=== PATIENT | female | born 1940 | race Caucasian/White ===

== ENCOUNTER → 2018-03-23 | Outpatient (CLI) | payer MEDICARE, OTHER ==
--- NOTE | 2018-03-25 09:52 | SLEEP ---
DATE OF STUDY: 03/23/2018 OBJECTIVE: The patient is a 77-year-old female who had a home sleep study on 02/16/2018 showing desaturations at the rate of 16 events per hour. The patient was on 3 liters of oxygen at that time. INTERPRETATION: Sleep architecture is characterized by sleep efficiency of 84% across the 7.7 hours of recording time. There is absence of REM sleep. Sleep onset latency is 5 minutes. There are a total of 117 events for an apnea-hypopnea index of 18.0 events per hour of sleep. The minimum oxygen saturation is 43%. The vast majority of the events are obstructive. The patient was started on treatment. At a BiPAP setting of 12/8, the apnea/hypopnea index remains 29.3 events per hour of sleep. No significant cardiac arrhythmias are observed. Periodic limb movements of sleep occur at the rate of 51 events per hour, 8 per hour associated with arousal. IMPRESSION: Abnormal polysomnogram showing partially treated sleep apnea on a setting of 12/8. RECOMMENDATIONS: Unfortunately, we were unable to fully treat the patient's apnea on the setting of 12/8. Recommend repeat study, possibly starting the patient on 15/8 BiPAP with 3 liters of oxygen in the meantime. Of course, the patient should also pursue weight loss and avoid sedatives and alcohol. Thank you for letting us help with the patient's care. HONG SALOMON MD DR: KADEN/elena JOB#: [id number] / [id number] NELLA Sandy MD, GEORGE MD
== END | disposition home or self-care (01) ==
LOC: SLPLAB 18:25 → MERGE 18:30
PROVIDERS: ATTEND Internal Medicine Pulmonary Disease
DX: G47.30 Sleep apnea, unspecified (principal)
CPT/HCPCS: 95810

== ENCOUNTER → 2018-10-05 | Outpatient (CLI) | payer MEDICARE, OTHER ==
[2018-04-11 11:30] VITALS: BP 165/81
[~2018-10-05] MED LIST: ALBU2.5V8 INH; ALLO300T PO; DOXY100T PO; IBUP-1007 PO; LEVO125T PO; LIPITOR80 MG PO; METF500T9 PO; METO-239 PO; MOME13HF IH; OMEP20TA63 PO; PRED-220 PO; SERT100T PO; TELM40TA PO; TOLT4CAP PO
--- NOTE | 2018-10-05 14:06 | KCIC ---
Bilateral diagnostic digital mammograms with 3-D tomosynthesis: Reason for examination: Left breast lump. Comparison is made to previous studies dated 08/16/2015 and 01/24/2013. Bilateral mammograms in CC and oblique projections were obtained with 2-D imaging and 3-D tomosynthesis imaging on a Siemens Inspiration unit and reviewed on the workstation. Interpretation was made with the benefit of CAD. The skin and nipples show no abnormalities. No abnormal axillary lymph nodes are seen. The breast parenchyma is predominantly fatty. (Breast density: Category A.) There is a small 8 mm superficial nodule in the left breast with the area of clinical concern laterally the 9:00 B position. Further evaluation with ultrasound will follow. There are no other dominant masses, suspicious calcifications or architectural distortion. Benign calcifications are present. Impression: 8 mm nodule at the 9:00 B position of the left breast. Ultrasound to follow. BI-RADS Category 0: Incomplete. Needs additional imaging evaluation. Left breast ultrasound: Ultrasound examination of the left breast and axilla was performed with attention to the area of clinical concern. In the superficial 10:00 position 6 cm from the nipple, there is a hyperechoic lesion with a hypoechoic center measuring approximately 1.5 cm in greatest dimension. This shows no abnormal vascularity. The appearance suggests a hematoma. No other focal lesions are seen. No abnormal appearing lymph nodes are seen in the left axilla. IMPRESSION: 1.5 cm hyperechoic lesion with a hypoechoic center which probably represents a hematoma. Recommend reevaluation with ultrasound in 2 months. BI-RADS Category 3: Probably Benign. "Our facility is accredited by the [employer] Mammography [employer]." This patient's information has been entered into a reminder system for the patient to be notified with the results of her examination and a target date for the next mammogram. Electronically signed by: Bisi Cardona MD (10/05/2018 2:03 PM) [id number]
== END | disposition home or self-care (01) ==
LOC: KCIC MAMMO 12:29
PROVIDERS: ATTEND Family Medicine
DX: N63.22 Unspecified lump in the left breast, upper inner quadrant (principal); N64.89 Other specified disorders of breast
CPT/HCPCS: 76641; 77066; G0279; 77062

== ENCOUNTER → 2018-12-08 | Outpatient (CLI) | payer MEDICARE, OTHER ==
[2018-04-11 11:30] VITALS: BP 165/81
[~2018-12-08] MED LIST changes: +METF500T11 PO; -METF500T9 PO
--- NOTE | 2018-12-08 14:14 | KCIC ---
Left breast ultrasound: Reason for examination: Follow-up nodule. Comparison is made to previous study dated 10/05/2018. At the 10:00 position 6 cm from the nipple, there continues to be a subtle 1 cm hypoechoic lesion with mild surrounding echogenicity. This shows no abnormal vascularity. This probably represents a resolving hematoma. No other cystic or solid lesions are seen. No abnormal appearing lymph nodes are seen in the left axilla. IMPRESSION: Subtle 1 cm hypoechoic lesion with some surrounding echogenicity which has decreased in size when compared to previous exam and would be consistent with a resolving hematoma. Recommend continued follow-up left breast ultrasound with reevaluation in 6 months. BI-RADS Category 3: Probably Benign. "Our facility is accredited by the [employer] Mammography [employer]." This patient's information has been entered into a reminder system for the patient to be notified with the results of her examination and a target date for the next mammogram. Electronically signed by: Bisi Cardona MD (12/08/2018 2:11 PM) [facility]
== END | disposition home or self-care (01) ==
LOC: KCIC US 12:52
PROVIDERS: ATTEND Family Medicine
DX: N64.89 Other specified disorders of breast (principal)
CPT/HCPCS: 76641

== ENCOUNTER → 2019-05-26 | Outpatient (CLI) | payer MEDICARE, OTHER ==
[2018-04-11 11:30] VITALS: BP 165/81
--- NOTE | 2019-05-26 17:07 | KCIC ---
PQRS Compliance Statement: One or more of the following individualized dose reduction techniques were utilized for this examination: 1. Automated exposure control 2. Adjustment of the mA and/or kV according to patient size 3. Use of iterative reconstruction technique CT CHEST WO CONTRAST Clinical Indication: Right lung density, COPD, shortness of air, past smoker. Comparison: CT chest without contrast April 08, 2018. TECHNIQUE: Helical CT imaging of the chest is performed without IV contrast. Findings: There are subcentimeter mediastinal lymph nodes. Changes of CABG. The great vessels are stable. Coronary artery disease. Cardiac size normal, no pericardial effusion. Redemonstrated severe elevation of the right hemidiaphragm. The central airways are patent. Mild upper lobe centrilobular emphysema. Masslike consolidation or parenchymal mass in the right lower lobe has increased in size now measuring 4.4 x 3.4 cm, previously 4.1 x 2.9 cm. The left lung is clear. There is cholelithiasis. Adrenal glands are stable. Thoracic spine alignment is maintained. IMPRESSION: 1. Parenchymal mass or masslike consolidation in the right lower lobe has increased in size. Cannot exclude lung malignancy. Recommend further evaluation with FDG PET/CT. 2. Mild upper lobe centrilobular emphysema. 3. Cholelithiasis. Electronically signed by: Jeyson Méndez MD (05/26/2019 5:05 PM) [id number]
== END | disposition home or self-care (01) ==
LOC: KCIC CT 08:05
PROVIDERS: ATTEND Internal Medicine Pulmonary Disease
DX: J43.2 Centrilobular emphysema (principal); K80.20 Calculus of gallbladder without cholecystitis without obstruction; Z95.1 Presence of aortocoronary bypass graft; Z87.891 Personal history of nicotine dependence
CPT/HCPCS: 71250

== ENCOUNTER 2020-07-02 13:31 | Inpatient (IN) | payer MEDICARE, OTHER ==
[~2020-07-02] VITALS: Ht 172.7 cm; Wt 90.9 kg
[~2020-07-02 13:31] MED LIST changes: +METF-658 PO; -METF500T11 PO
[2020-07-02 14:12] LABS: BASO % 1 % (0-3); EOS # 0.2 x10^3/uL (0.0-0.7); EOS % 4 % (0-3); HEMATOCRIT 26.9 % (36.0-47.0); HEMOGLOBIN 8.3 g/dL (12.0-15.5); LYMPH # 0.9 x10^3/uL (1.0-4.8); LYMPH % 17 % (24-48); MEAN CORPUSCULAR HEMOGLOBIN 28 pg (25-35); MEAN CORPUSCULAR HGB CONC 31 g/dL (31-37); MEAN CORPUSCULAR VOLUME 90 fL (79-100); MONO # 0.4 x10^3/uL (0.0-1.1); MONO % 8 % (0-9); NEUT # 3.5 x10^3/uL (1.8-7.7); NEUT % 71 % (31-73); PLATELET COUNT 141 x10^3/uL (140-400); RED BLOOD COUNT 2.98 x10^6/uL (3.50-5.40); RED CELL DISTRIBUTION WIDTH 15.7 % (11.5-14.5)
[2020-07-02 14:32] LABS: BILIRUBIN,URINE NEGATIVE (NEG); CLARITY,URINE CLEAR; COLOR,URINE YELLOW; NITRITE,URINE NEGATIVE (NEG); PROTEIN,URINE NEGATIVE (NEG-TRACE); UROBILINOGEN,URINE 0.2 mg/dL (0.2 mg/dL)
[2020-07-02 14:39] LABS: BACTERIA,URINE FEW /HPF (0-FEW); HYALINE CASTS, URINE FEW /HPF; RBC,URINE 0 /HPF (0-2)
[2020-07-02 14:39] LABS: ALBUMIN 2.9 g/dL (3.4-5.0); ALBUMIN/GLOBULIN RATIO 0.8 (1.0-1.7); CALCIUM 9.2 mg/dL (8.5-10.1); CREATININE 0.8 mg/dL (0.6-1.0); POTASSIUM 4.4 mmol/L (3.5-5.1); TOTAL BILIRUBIN 0.3 mg/dL (0.2-1.0); TOTAL PROTEIN 6.7 g/dL (6.4-8.2)
[2020-07-02] MEDS ORDERED: IOHEXOL 300 MG/ML 100ML VIAL. IV ONE (15:00)
[2020-07-02] MEDS ORDERED: IOHEXOL 240 MG/ML 50ML VIAL. PO ONE (15:00)
[2020-07-02] MEDS ORDERED: IV NORMAL SALINE 500ML BAG 500 ML IV ONE (15:00)
--- NOTE | 2020-07-02 15:05 | ED.ADGEN ---
Past Medical History Past Medical History: COPD, Diabetes-Type II, Heart Disease, Hypertension, Hypothyroid, Other Additional Past Medical Histor: JARON, HF Past Surgical History: Coronary Bypass Surgery Smoking Status: Former Smoker Alcohol Use: None Drug Use: None General Adult EDM: Chief Complaint: DIARRHEA HPI: HPI: Patient is an 80-year-old female with past medical history of congestive heart failure, COPD who presents to the emergency room complaining of lower abdominal gurgling and pain, diarrhea, and right-sided back pain. It is unclear exactly when symptoms started. Family believes it has been 3 to 5 days. They do not believe she has had any falls to hurt her back. Patient states that her back pain feels like a soreness you get after you fall on something. She states it is constant in nature. Her abdominal pain only comes on when she gets gurgling in her lower abdomen. She does not have any cramping in her abdomen. She states that she has had multiple episodes of diarrhea every day for the last few days. Family states that she has been more confused over the last few days. She typically does not have any confusion. They state that she is getting progressively weaker and has been very lethargic. Review of Systems: Review of Systems: Complete ROS is negative unless otherwise documented in HPI Current Medications: Current Medications Medications (Trade) Dose Ordered Sig/Agata Start Time Stop Time Status Last Admin Dose Admin Iohexol (Omnipaque 240 Mg/ml) 50 ml 1X ONCE 07/02/20 15:00 07/02/20 15:04 DC 07/02/20 15:00 50 ML Iohexol (Omnipaque 300 Mg/ml) 75 ml 1X ONCE 07/02/20 15:00 07/02/20 15:04 DC 07/02/20 15:00 75 ML Sodium Chloride 500 ml @ 500 mls/hr 1X ONCE 07/02/20 15:00 07/02/20 15:59 DC 07/02/20 15:05 500 MLS/HR Allergies: Allergies: Allergies Coded Allergies Type Severity Reaction Last Updated Verified Sulfa (Sulfonamide Antibiotics) Allergy Intermediate 04/07/18 Yes diazepam Allergy Intermediate 04/07/18 Yes Physical Exam: PE: General: Awake, alert, NAD. Well Nourished, well hydrated. Cooperative HEENT: Atraumatic, EOMI, PERRL, airway patent, moist oral mucosa Neck: Supple, trachea midline Respiratory: CTA bilaterally, normal effort, no wheezing/crackles CV: RRR, no murmur, cap refill <2 GI: Soft, nondistended, nontender, no masses MSK: No obvious deformities Skin: Warm, dry, intact Neuro: A&O x3, speech NL, sensory and motor grossly intact, no focal deficits, mild confusion Psych: Normal affect, normal mood, not suicidal or homicidal Current Patient Data: Labs: Laboratory Tests Test 07/02/20 14:00 07/02/20 14:16 07/02/20 16:25 White Blood Count 5.0 x10^3/uL (4.0-11.0) Red Blood Count 2.98 x10^6/uL (3.50-5.40) L Hemoglobin 8.3 g/dL (12.0-15.5) L Hematocrit 26.9 % (36.0-47.0) L Mean Corpuscular Volume 90 fL (79-100) Mean Corpuscular Hemoglobin 28 pg (25-35) Mean Corpuscular Hemoglobin Concent 31 g/dL (31-37) Red Cell Distribution Width 15.7 % (11.5-14.5) H Platelet Count 141 x10^3/uL (140-400) Neutrophils (%) (Auto) 71 % (31-73) Lymphocytes (%) (Auto) 17 % (24-48) L Monocytes (%) (Auto) 8 % (0-9) Eosinophils (%) (Auto) 4 % (0-3) H Basophils (%) (Auto) 1 % (0-3) Neutrophils # (Auto) 3.5 x10^3/uL (1.8-7.7) Lymphocytes # (Auto) 0.9 x10^3/uL (1.0-4.8) L Monocytes # (Auto) 0.4 x10^3/uL (0.0-1.1) Eosinophils # (Auto) 0.2 x10^3/uL (0.0-0.7) Basophils # (Auto) 0.0 x10^3/uL (0.0-0.2) Sodium Level 150 mmol/L (136-145) H Potassium Level 4.4 mmol/L (3.5-5.1) Chloride Level 107 mmol/L (98-107) Carbon Dioxide Level 40 mmol/L (21-32) H Anion Gap 3 (6-14) L Blood Urea Nitrogen 21 mg/dL (7-20) H Creatinine 0.8 mg/dL (0.6-1.0) Estimated GFR (Cockcroft-Gault) 69.0 BUN/Creatinine Ratio 26 (6-20) H Glucose Level 133 mg/dL (70-99) H Calcium Level 9.2 mg/dL (8.5-10.1) Total Bilirubin 0.3 mg/dL (0.2-1.0) Aspartate Amino Transferase (AST) 10 U/L (15-37) L Alanine Aminotransferase (ALT) 13 U/L (14-59) L Alkaline Phosphatase 98 U/L (46-116) Total Protein 6.7 g/dL (6.4-8.2) Albumin 2.9 g/dL (3.4-5.0) L Albumin/Globulin Ratio 0.8 (1.0-1.7) L Lipase 104 U/L (73-393) Urine Collection Type Unknown Urine Color Yellow Urine Clarity Clear Urine pH 5.0 (<5.0-8.0) Urine Specific [place] 1.010 (1.000-1.030) Urine Protein Negative mg/dL (NEG-TRACE) Urine Glucose (UA) Negative mg/dL (NEG) Urine Ketones (Stick) Negative mg/dL (NEG) Urine Blood Negative (NEG) Urine Nitrite Negative (NEG) Urine Bilirubin Negative (NEG) Urine Urobilinogen Dipstick 0.2 mg/dL (0.2 mg/dL) Urine Leukocyte Esterase Moderate (NEG) Urine RBC 0 /HPF (0-2) Urine WBC 11-20 /HPF (0-4) Urine Squamous Epithelial Cells Few /LPF Urine Bacteria Few /HPF (0-FEW) Urine Hyaline Casts Few /HPF Urine Mucus Slight /LPF POC Venous pH 7.34 (7.32-7.42) POC Venous pCO2 86 mmHg (41-51) H POC Venous pO2 194 mmHg (20-40) H Venous Blood HCO3 46 mmol/L (24-28) H POC Venous O2 Saturation (Thelma) 100 % POC FiO2 21.0 Laboratory Tests 07/02/20 14:00 Laboratory Tests 07/02/20 14:00 Vital Signs: Vital Signs Date Time Temp Pulse Resp B/P (MAP) Pulse Ox O2 Delivery O2 Flow Rate FiO2 07/02/20 17:31 68 133/59 (83) 100 Nasal Cannula 2.0 07/02/20 13:41 98.8 35 98.8 EKG: EKG: [] Heart Score: C/O Chest Pain: N/A Risk Factors: Risk Factors: DM, Current or recent (<one month) smoker, HTN, HLP, family history of CAD, obesity. Risk Scores: Score 0 - 3: 2.5% MACE over next 6 weeks - Discharge Home Score 4 - 6: 20.3% MACE over next 6 weeks - Admit for Clinical Observation Score 7 - 10: 72.7% MACE over next 6 weeks - Early Invasive Strategies Radiology/Procedures: Radiology/Procedures: [] Course & Med Decision Making: Course & Med Decision Making Pertinent Labs and Imaging studies reviewed. (See chart for details) Patient is an 80-year-old female who presents to the emergency room with int ermittent abdominal pain, diarrhea, back pain, confusion. Patient is overall well-appearing. Lab work is unremarkable. Exam is reassuring. Patient has a soft, nontender exam without any rebound or signs of peritonitis. Given patient's intermittent belly pain, age, diarrhea CT scan will be done to rule out any acute abdominal abnormalities. Patient does have a history of hypercapnia. Her bicarb is elevated on her CMP. We will do a venous blood gas to evaluate her PCO2. Lab work does show some dehydration. Patient was given 500 mL of fluid. Venous blood gas does show elevated PCO2 of 86. Patient does appear to have hypercapnia which is likely the cause of her confusion. Patient will be placed on BiPAP and admitted to the [facility]. Dragon Disclaimer: Dragon Disclaimer: This electronic medical record was generated, in whole or in part, using a voice recognition dictation system. Critical Care Time Critical Care: Authorized and Performed by: Marva Pedro MD Total critical care time: approximately 35 minutes Due to a high probability of clinically significant, life threatening deterioration, the patient required my highest level of preparedness to intervene emergently and I personally spent this critical care time directly and personally managing the patient. This critical care time included obtaining a history; examining the patient; pulse oximetry; ventilator management if necessary; ordering and review of studies; arranging urgent treatment with development of a management plan; evaluation of patient's response to treatment; frequent reassessment; discussion with patient/family; and, discussions with other providers. This critical care time was performed to assess and manage the high probability of imminent, life-threatening deterioration that could result in multi-organ failure. It was exclusive of separately billable procedures and treating other patients and teaching time. Please see MDM section and the rest of the note for further information on patient assessment and treatment. Departure Departure Impression: Primary Impression: Hypercapnic respiratory failure Additional Impressions: Diarrhea Hypernatremia Congestive heart failure Disposition: ADMITTED INPT THIS HOSP Condition: STABLE Referrals: NELLA LEVINE MD (PCP) Problem Qualifiers MARVA PEDRO MD Jul 02, 2020 15:05
--- NOTE | 2020-07-02 17:01 | RAD ---
EXAM: CT ABDOMEN/PELVIS WITH CONTRAST. HISTORY: Abdominal pain and diarrhea. TECHNIQUE: Computed tomography of the abdomen and pelvis was performed after the intravenous administ ration of iodinated contrast. One or more of the following individualized dose reduction techniques w ere utilized for this examination: 1. Automated exposure control. 2. Adjustment of the mA and/or kV according to patient size. 3. Use of iterative reconstruction technique. COMPARISON: 05/26/2019. FINDINGS: Lung windows through the visualized portions of the bases reveal a soft tissue density mass in the right lung base at the superior margin of the [id number] measures 5.1 x 4.2 cm, increased from 4.7 x 3.3 cm previously. There is a small amount of adjacent pleural fluid. There is mild atelec tasis elsewhere. The right hemidiaphragm is moderately elevated. Changes of coronary artery bypass gr afting are noted. Bone windows reveal no suspicious lesions. There is a gallstone in the gallbladder neck. The gallbladder does not appear distended or inflamed. The common duct is not dilated. The liver, adrenal glands, pancreas and right kidney are unremarkable. There is a 1 cm benign cyst in the left renal upper pole. A tiny calcified granuloma is noted in the spleen. There is at least moderate infrarenal abdominal aortic stenosis with minimal luminal diameter 6 mm. T he iliac systems are patent. The uterus is surgically absent. Sigmoid diverticulosis is mild. There is no evidence of appendicitis . There is no small bowel obstruction. There are no pathologically enlarged lymph nodes. IMPRESSION: 1. Cholelithiasis without clear evidence of acute cholecystitis. 2. A 5.1 cm mass in the right lung base is incompletely assessed, but appears increased slightly sinc e 05/26/2019. Neoplasm is not excluded. Correlate for a known diagnosis. 3. Infrarenal abdominal aortic stenosis with minimal luminal diameter 6 mm. Electronically signed by: Jeremi Stein MD (07/02/2020 4:59 PM) [facility]
[2020-07-02 17:28] LABS: ISTAT BE VENOUS 20 mmol/L (0-3); ISTAT HCO3 VEN 46 mmol/L (24-28); ISTAT PCO2 VEN 86 mmHg (41-51); ISTAT PH VEN 7.34 (7.32-7.42); ISTAT PO2 VEN 194 mmHg (20-40); ISTAT SAT O2 VEN 100 %; ISTAT TCO2 VEN 48 mmol/L (21-32)
[2020-07-02] MEDS ORDERED: DEXAMETHASONE SOD PHOS 4 MG/ML VIAL IVP ONE (18:30)
--- NOTE | 2020-07-02 19:10 | RAD ---
Right upper quadrant ultrasound dated 07/02/2020. Comparison made to CT dated same day. CLINICAL INDICATION: Abdominal pain. FINDINGS: Echogenic shadowing foci within the gallbladder lumen. No wall thickening or pericholecystic fluid. The liver is not well evaluated due to overlying bowel gas. No apparent biliary ductal dilatation. Th e common bile duct measures 5 mm. The right kidney measures 10.3 cm in length without hydronephrosis. Left kidney was not imaged. Pancreas aorta and IVC not well evaluated. No significant ascites. IMPRESSION: 1. Cholelithiasis with no secondary signs of acute cholecystitis. Electronically signed by: Mykel Tolbert MD (07/02/2020 7:08 PM) [facility]
--- NOTE | 2020-07-02 19:45 | PDOC1 ---
History and Physical Date of Admission Date of Admission DATE: 07/02/20 TIME: 19:32 Identification/Chief Complaint Chief Complaint weakness, confusion Source Source: Chart review, Patient History of Present Illness History of Present Illness Ms. Parks, is an 80-year-old female admti with weaknes and confusion, seen in the ER with her daughter, She has Hx of congestive heart failure, COPD sternal paralysis, she reports not feeling well for over a week, having about 4 days of weakness, and > 1 day of confusion, her daughter said she didnt feel well enough to do the laundry like she normally does starting about a week ago, or so. she has had diarrhea, and has not been wearing her BIPAP at night that she needs for JARON, probably due to confusion. she has had some abdominal pain only comes on when she gets gurgling in her lower abdomen. Family History Family History: High Cholestrol, Hypertension Social History ALCOHOL: none Drugs: None Current Medications Current Medications Current Medications Sodium Chloride 500 ml @ 500 mls/hr 1X ONCE IV Last administered on 07/02/20at 15:05; Start 07/02/20 at 15:00; Stop 07/02/20 at 15:59; Status DC Iohexol (Omnipaque 300 Mg/ml) 75 ml 1X ONCE IV Last administered on 07/02/20at 15:00; Start 07/02/20 at 15:00; Stop 07/02/20 at 15:04; Status DC Iohexol (Omnipaque 240 Mg/ml) 50 ml 1X ONCE PO Last administered on 07/02/20at 15:00; Start 07/02/20 at 15:00; Stop 07/02/20 at 15:04; Status DC Dexamethasone Sodium Phosphate (Decadron) 10 mg 1X ONCE IVP Last administered on 07/02/20at 19:19; Start 07/02/20 at 18:30; Stop 07/02/20 at 18:31; Status DC Active Scripts Active Prednisone (Prednisone) 10 Mg Tablet 10 Mg PO DAILY 12 Days Doxycycline Hyclate 100 Mg Tablet 100 Mg PO BID 7 Days Reported Metformin Hcl Er (Metformin Hcl) 500 Mg Tab.er.24h 500 Mg PO [id number] Allopurinol 300 Mg Tablet 300 Mg PO DAILY Lipitor (Atorvastatin Calcium) 80 Mg Tablet 1 Tab PO DAILY Metoprolol Succinate ( Xl ) (Metoprolol Succinate) 25 Mg Tab.er.24h 1 Tab PO DAILY Synthroid (Levothyroxine Sodium) 125 Mcg Tablet 1 Tab PO DAILY Prilosec Otc (Omeprazole Magnesium) 20 Mg Tablet.dr 20 Mg PO DAILY Proair Hfa (Albuterol Sulfate) 8.5 Gm Hfa.aer.ad 1 Puff INH PRN Q4HRS PRN Micardis (Telmisartan) 40 Mg Tablet 40 Mg PO DAILY Dulera 200 Mcg/5 Mcg Inhaler (Mometasone/Formoterol) 13 Gm Hfa.aer.ad 2 Puff IH BID Detrol La (Tolterodine Tartrate) 4 Mg Cap.er.24h 4 Mg PO DAILY Zoloft (Sertraline Hcl) 100 Mg Tablet 1 Tab PO DAILY Ibuprofen 600 Mg Tablet 600 Mg PO PRN Q6HRS PRN Allergies Allergies: Coded Allergies: Sulfa (Sulfonamide Antibiotics) (Verified Allergy, Intermediate, 04/07/18) diazepam (Verified Allergy, Intermediate, 04/07/18) ROS General: YES: Fatigue, Malaise; No: Chills, Night Sweats, Appetite, Other PSYCHOLOGICAL ROS: No: Anxiety, Behavioral Disorder, Concentration difficultie, Decreased libido, Depression, Disorientation, Hallucinations, Hostility, Irritablity, Memory difficulties, Mood Swings, Obsessive thoughts, Physical abuse, Sexual abuse, Sleep disturbances, Suicidal ideation, Other Eyes: No Blurry vision, No Decreased vision, No Double vision, No Dry eyes, No Excessive tearing, No Eye Pain, No Itchy Eyes, No Loss of vision, No Photophobia, No Scotomata, No Uses contacts, No Uses glasses, No Other HEENT: No: Heacaches, Visual Changes, Hearing change, Nasal congestion, Nasal discharge, Oral lesions, Sinus pain, Sore Throat, Epistaxis, Sneezing, Snoring, Tinnitus, Vertigo, Vocal changes, Other ALLERGY AND IMMUNOLOGY: No: Hives, Insect Bite Sensitivity, Itchy/Watery Eyes, Nasal Congestion, Post Nasal Drip, Seasonal Allergies, Other Respiratory: YES: Cough, Shortness of breath, SOB with excertion; No: Hemoptysis, Orthopnea, Pleuritic Pain, Sputum Changes, Stridor, Tachypnea, Wheezing, Other Cardiovascular: No Chest Pain, No Palpitations, No Orthopnea, No Paroxysmal Noc. Dyspnea, No Edema, No Lt Headedness, No Other Gastrointestinal: Yes Nausea, Yes Diarrhea; No Vomiting, No Abdominal Pain, No Constipation, No Melena, No Hematochezia, No Other Genitourinary: No Dysuria, No Frequency, No Incontinence, No Hematuria, No Retention, No Discharge, No Urgency, No Pain, No Flank Pain, No Other, No , No , No , No , No , No , No Musculoskeletal: Yes Muscular Weakness; No Gait Disturbance, No Joint Pain, No Joint Stiffness, No Joint Swelling, No Muscle Pain, No Pain In:, No Swelling In:, No Other Neurological: Yes Confusion, Yes Memory Loss; No Behavorial Changes, No Bowel/Bladder ControlChng, No Dizziness, No Gait Disturbance, No Headaches, No Impaired Coord/balance, No Numbness/Tingling, No Seizures, No Speech Problems, No Tremors, No Visual Changes, No Weakness, No Other Skin: Yes Dry Skin; No Eczema, No Hair Changes, No Lumps, No Mole Changes, No Mottling, No Nail Changes, No Pruritus, No Rash, No Skin Lesion Changes, No Other, No Acne Physical Exam Physical Exam not oriente,d confused, able to converse with BIPAP on General: Alert, Cooperative, mild distress HEENT: Atraumatic Lungs: Other (limted vol, right side dull, left with rales, no wheeze, ) Abdomen: Normal bowel sounds, Soft Extremities: No clubbing, No edema Skin: No breakdown, No significant lesion Neuro: Normal tone Psych/Mental Status: Mood NL, Other Vitals Vitals Vital Signs Date Time Temp Pulse Resp B/P (MAP) Pulse Ox O2 Delivery O2 Flow Rate FiO2 07/02/20 18:44 94 BiPAP/CPAP 07/02/20 18:31 62 144/67 (92) 2.0 07/02/20 13:41 98.8 35 98.8 Labs Labs Laboratory Tests Test 07/02/20 14:00 07/02/20 14:16 07/02/20 16:25 White Blood Count 5.0 x10^3/uL (4.0-11.0) Red Blood Count 2.98 x10^6/uL (3.50-5.40) Hemoglobin 8.3 g/dL (12.0-15.5) Hematocrit 26.9 % (36.0-47.0) Mean Corpuscular Volume 90 fL (79-100) Mean Corpuscular Hemoglobin 28 pg (25-35) Mean Corpuscular Hemoglobin Concent 31 g/dL (31-37) Red Cell Distribution Width 15.7 % (11.5-14.5) Platelet Count 141 x10^3/uL (140-400) Neutrophils (%) (Auto) 71 % (31-73) Lymphocytes (%) (Auto) 17 % (24-48) Monocytes (%) (Auto) 8 % (0-9) Eosinophils (%) (Auto) 4 % (0-3) Basophils (%) (Auto) 1 % (0-3) Neutrophils # (Auto) 3.5 x10^3/uL (1.8-7.7) Lymphocytes # (Auto) 0.9 x10^3/uL (1.0-4.8) Monocytes # (Auto) 0.4 x10^3/uL (0.0-1.1) Eosinophils # (Auto) 0.2 x10^3/uL (0.0-0.7) Basophils # (Auto) 0.0 x10^3/uL (0.0-0.2) Sodium Level 150 mmol/L (136-145) Potassium Level 4.4 mmol/L (3.5-5.1) Chloride Level 107 mmol/L (98-107) Carbon Dioxide Level 40 mmol/L (21-32) Anion Gap 3 (6-14) Blood Urea Nitrogen 21 mg/dL (7-20) Creatinine 0.8 mg/dL (0.6-1.0) Estimated GFR (Cockcroft-Gault) 69.0 BUN/Creatinine Ratio 26 (6-20) Glucose Level 133 mg/dL (70-99) Calcium Level 9.2 mg/dL (8.5-10.1) Total Bilirubin 0.3 mg/dL (0.2-1.0) Aspartate Amino Transf (AST/SGOT) 10 U/L (15-37) Alanine Aminotransferase (ALT/SGPT) 13 U/L (14-59) Alkaline Phosphatase 98 U/L (46-116) Total Protein 6.7 g/dL (6.4-8.2) Albumin 2.9 g/dL (3.4-5.0) Albumin/Globulin Ratio 0.8 (1.0-1.7) Lipase 104 U/L (73-393) Urine Collection Type Unknown Urine Color Yellow Urine Clarity Clear Urine pH 5.0 (<5.0-8.0) Urine Specific [place] 1.010 (1.000-1.030) Urine Protein Negative mg/dL (NEG-TRACE) Urine Glucose (UA) Negative mg/dL (NEG) Urine Ketones (Stick) Negative mg/dL (NEG) Urine Blood Negative (NEG) Urine Nitrite Negative (NEG) Urine Bilirubin Negative (NEG) Urine Urobilinogen Dipstick 0.2 mg/dL (0.2 mg/dL) Urine Leukocyte Esterase Moderate (NEG) Urine RBC 0 /HPF (0-2) Urine WBC 11-20 /HPF (0-4) Urine Squamous Epithelial Cells Few /LPF Urine Bacteria Few /HPF (0-FEW) Urine Hyaline Casts Few /HPF Urine Mucus Slight /LPF Bedside Venous pH 7.34 (7.32-7.42) Bedside Venous pCO2 86 mmHg (41-51) Bedside Venous pO2 194 mmHg (20-40) Venous Blood HCO3 46 mmol/L (24-28) POC Venous O2 Saturation (Thelma) 100 % Bedside FiO2 21.0 Laboratory Tests Test 07/02/20 14:00 07/02/20 14:16 07/02/20 16:25 White Blood Count 5.0 x10^3/uL (4.0-11.0) Red Blood Count 2.98 x10^6/uL (3.50-5.40) Hemoglobin 8.3 g/dL (12.0-15.5) Hematocrit 26.9 % (36.0-47.0) Mean Corpuscular Volume 90 fL (79-100) Mean Corpuscular Hemoglobin 28 pg (25-35) Mean Corpuscular Hemoglobin Concent 31 g/dL (31-37) Red Cell Distribution Width 15.7 % (11.5-14.5) Platelet Count 141 x10^3/uL (140-400) Neutrophils (%) (Auto) 71 % (31-73) Lymphocytes (%) (Auto) 17 % (24-48) Monocytes (%) (Auto) 8 % (0-9) Eosinophils (%) (Auto) 4 % (0-3) Basophils (%) (Auto) 1 % (0-3) Neutrophils # (Auto) 3.5 x10^3/uL (1.8-7.7) Lymphocytes # (Auto) 0.9 x10^3/uL (1.0-4.8) Monocytes # (Auto) 0.4 x10^3/uL (0.0-1.1) Eosinophils # (Auto) 0.2 x10^3/uL (0.0-0.7) Basophils # (Auto) 0.0 x10^3/uL (0.0-0.2) Sodium Level 150 mmol/L (136-145) Potassium Level 4.4 mmol/L (3.5-5.1) Chloride Level 107 mmol/L (98-107) Carbon Dioxide Level 40 mmol/L (21-32) Anion Gap 3 (6-14) Blood Urea Nitrogen 21 mg/dL (7-20) Creatinine 0.8 mg/dL (0.6-1.0) Estimated GFR (Cockcroft-Gault) 69.0 BUN/Creatinine Ratio 26 (6-20) Glucose Level 133 mg/dL (70-99) Calcium Level 9.2 mg/dL (8.5-10.1) Total Bilirubin 0.3 mg/dL (0.2-1.0) Aspartate Amino Transf (AST/SGOT) 10 U/L (15-37) Alanine Aminotransferase (ALT/SGPT) 13 U/L (14-59) Alkaline Phosphatase 98 U/L (46-116) Total Protein 6.7 g/dL (6.4-8.2) Albumin 2.9 g/dL (3.4-5.0) Albumin/Globulin Ratio 0.8 (1.0-1.7) Lipase 104 U/L (73-393) Urine Collection Type Unknown Urine Color Yellow Urine Clarity Clear Urine pH 5.0 (<5.0-8.0) Urine Specific [place] 1.010 (1.000-1.030) Urine Protein Negative mg/dL (NEG-TRACE) Urine Glucose (UA) Negative mg/dL (NEG) Urine Ketones (Stick) Negative mg/dL (NEG) Urine Blood Negative (NEG) Urine Nitrite Negative (NEG) Urine Bilirubin Negative (NEG) Urine Urobilinogen Dipstick 0.2 mg/dL (0.2 mg/dL) Urine Leukocyte Esterase Moderate (NEG) Urine RBC 0 /HPF (0-2) Urine WBC 11-20 /HPF (0-4) Urine Squamous Epithelial Cells Few /LPF Urine Bacteria Few /HPF (0-FEW) Urine Hyaline Casts Few /HPF Urine Mucus Slight /LPF Bedside Venous pH 7.34 (7.32-7.42) Bedside Venous pCO2 86 mmHg (41-51) Bedside Venous pO2 194 mmHg (20-40) Venous Blood HCO3 46 mmol/L (24-28) POC Venous O2 Saturation (Thelma) 100 % Bedside FiO2 21.0 VTE Prophylaxis Ordered VTE Prophylaxis Devices: Yes VTE Pharmacological Prophylaxi: Yes Assessment/Plan Assessment/Plan metabolic encephalopathy hypercarbia without acidosis, COPD, poss exacerbation, better on BIPAP in ER, she is more alert than when presented, has JARON, started on BIPAP UTI, rocpehin lethargy, weakness diarrhea, dehydration, hypernatremia, moderate malnutrition, Justifications for Admission Other Justification DIA BROCK MD Jul 02, 2020 19:45
[2020-07-02 19:55] VITALS: BP 132/67
[2020-07-02] MEDS ORDERED: AZITHROMYCIN 500 MG in IV NORMAL SALINE 250ML 250 ML IV ONE (20:00)
[2020-07-02] MEDS ORDERED: CONTRAST GIVEN. MC PRN (20:00)
[2020-07-02] MEDS: IPRATRPIUM/ALBUTEROL 0.5/2.5MG 3 ML NEBU. NEB SCH (20:02)
[2020-07-02] MEDS: BUDESONIDE 0.5 MG/2 ML NEBU. NEB SCH (20:02)
[2020-07-02] MEDS: IV DEXTROSE 5 %-0.45 % NACL 1,000 ML IV SCH (20:58)
[2020-07-02] MEDS: cefTRIAXone IV Push 1 GM VIAL. IVP SCH (20:58)
[2020-07-02] MEDS: ENOXAPARIN 40 MG/0.4 ML SYRINGE. SQ SCH (20:59)
[2020-07-02] MEDS: OXYBUTYNIN CHLORIDE 5 MG TABLET PO SCH (20:59)
--- NOTE | 2020-07-02 23:13 | RAD ---
Single view chest dated 07/02/2020. Comparison made to CT dated 05/26/2019. Clinical indication: Shortness of breath. COPD. FINDINGS: Single upright portable exam performed. Heart and mediastinal contours are stable. The patient is sta tus post median sternotomy. Elevation of right hemidiaphragm. There is no consolidation or pleural ef fusion. No pneumothorax. Prominent perihilar linear markings on the left, unchanged. IMPRESSION: No acute radiographic abnormality. Stable findings compared to 05/26/2019. Electronically signed by: Mykel Tolbert MD (07/02/2020 11:11 PM) NANY
[2020-07-02 23:30] VITALS: BP 118/56
--- NOTE | 2020-07-02 23:55 | NUR ---
The patient, ALFONSO MACK, 80 y/o, F admitted by DIA BROCK MD, was given written information regarding hospital policies, unit procedures and contact persons. Valuables were checked, shoes, dentures, jacket, and underwear all patient had with her.
[2020-07-03 05:35] LABS: BASO % 0 % (0-3); EOS % 0 % (0-3); HEMATOCRIT 25.2 % (36.0-47.0); LYMPH # 0.5 x10^3/uL (1.0-4.8); LYMPH % 10 % (24-48); MEAN CORPUSCULAR HEMOGLOBIN 28 pg (25-35); MEAN CORPUSCULAR HGB CONC 32 g/dL (31-37); MEAN CORPUSCULAR VOLUME 89 fL (79-100); MONO # 0.1 x10^3/uL (0.0-1.1); MONO % 1 % (0-9); NEUT # 3.9 x10^3/uL (1.8-7.7); NEUT % 88 % (31-73); PLATELET COUNT 120 x10^3/uL (140-400); RED BLOOD COUNT 2.82 x10^6/uL (3.50-5.40); RED CELL DISTRIBUTION WIDTH 15.7 % (11.5-14.5); WHITE BLOOD COUNT 4.4 x10^3/uL (4.0-11.0)
[2020-07-03] MEDS: LEVOTHYROXINE 125 MCG TABLET PO SCH (05:46)
[2020-07-03] MEDS: PANTOPRAZOLE 40 MG TABLET.DR. PO SCH (05:46)
[2020-07-03 06:44] LABS: ALBUMIN 2.7 g/dL (3.4-5.0); ALBUMIN/GLOBULIN RATIO 0.8 (1.0-1.7); CALCIUM 8.5 mg/dL (8.5-10.1); GFR 53.3; POTASSIUM 4.8 mmol/L (3.5-5.1); TOTAL BILIRUBIN 0.2 mg/dL (0.2-1.0); TOTAL PROTEIN 6.3 g/dL (6.4-8.2)
[2020-07-03 07:00] VITALS: BP 134/60
[2020-07-03] MEDS: IPRATRPIUM/ALBUTEROL 0.5/2.5MG 3 ML NEBU. NEB SCH ×4 (07:38→21:21)
[2020-07-03] MEDS: BUDESONIDE 0.5 MG/2 ML NEBU. NEB SCH ×2 (07:38→21:21)
[2020-07-03] MEDS: OXYBUTYNIN CHLORIDE 5 MG TABLET PO SCH ×3 (08:37→22:16)
[2020-07-03] MEDS: SERTRALINE 50 MG TABLET. PO SCH (08:37)
[2020-07-03] MEDS: LOSARTAN POTASSIUM 50 MG TABLET. PO SCH (08:39)
[2020-07-03] MEDS: ALLOPURINOL 300 MG TABLET. PO SCH (08:39)
[2020-07-03] MEDS: METOPROLOL SUCC 24HR ER 25 MG TAB.ER.24H. PO SCH (08:39)
[2020-07-03] MEDS: ATORVASTATIN CALCIUM 40 MG TABLET. PO SCH (08:39)
[2020-07-03] MEDS ORDERED: AZITHROMYCIN 250 MG TABLET. PO SCH (09:00)
[2020-07-03] MEDS ORDERED: predniSONE 20 MG TABLET PO SCH (09:00)
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
[2020-07-03 10:18] LABS: % BANDS 5 % (0-9); % EOS 2 % (0-5); % LYMPHS 10 % (24-48); % MONOS 1 % (0-10); % SEGS 82 % (35-66)
[2020-07-03 10:19] LABS: PLT ESTIMATE ADEQUATE (ADEQUATE)
--- NOTE | 2020-07-03 10:21 | PDOC ---
[employer] PROGRESS NOTE Date of Service DOS: DATE: 07/03/20 TIME: 10:18 Chief Complaint Chief Complaint metabolic encephalopathy chronic resp hypercarbia COPD, with chronic hypoxia, 4 liters, BIPAP HS, has JARON, UTI, rocephin lethargy, weakness diarrhea, dehydration, hypernatremia, cont the IV fluid moderate malnutrition,, encourage PO, consult nutrition, acute illness, History of Present Illness History of Present Illness much better today, cont the IV fluid, her serum sodium is near normal, Vitals/I&O Vitals/I&O: Vital Signs Date Time Temp Pulse Resp B/P (MAP) Pulse Ox O2 Delivery O2 Flow Rate FiO2 07/03/20 08:39 68 134/60 07/03/20 07:39 98 BiPAP/CPAP 07/03/20 07:00 97.6 20 97.6 07/02/20 19:40 5.0 I & O 07/02/20 07/02/20 07/03/20 15:00 23:00 07:00 Intake Total 0 ml 200 ml Output Total 500 ml Balance 0 ml -300 ml Physical Exam General: Alert, Oriented X3, Cooperative, No acute distress Heart: Normal S1 Lungs: Crackles Abdomen: Normal bowel sounds, Soft Extremities: No clubbing, No edema Skin: No breakdown, No significant lesion Labs Labs: Laboratory Tests Test 07/02/20 14:00 07/02/20 14:16 07/02/20 16:25 07/03/20 05:00 White Blood Count 5.0 x10^3/uL (4.0-11.0) 4.4 x10^3/uL (4.0-11.0) Red Blood Count 2.98 x10^6/uL (3.50-5.40) 2.82 x10^6/uL (3.50-5.40) Hemoglobin 8.3 g/dL (12.0-15.5) 8.0 g/dL (12.0-15.5) Hematocrit 26.9 % (36.0-47.0) 25.2 % (36.0-47.0) Mean Corpuscular Volume 90 fL (79-100) 89 fL (79-100) Mean Corpuscular Hemoglobin 28 pg (25-35) 28 pg (25-35) Mean Corpuscular Hemoglobin Concent 31 g/dL (31-37) 32 g/dL (31-37) Red Cell Distribution Width 15.7 % (11.5-14.5) 15.7 % (11.5-14.5) Platelet Count 141 x10^3/uL (140-400) 120 x10^3/uL (140-400) Neutrophils (%) (Auto) 71 % (31-73) 88 % (31-73) Lymphocytes (%) (Auto) 17 % (24-48) 10 % (24-48) Monocytes (%) (Auto) 8 % (0-9) 1 % (0-9) Eosinophils (%) (Auto) 4 % (0-3) 0 % (0-3) Basophils (%) (Auto) 1 % (0-3) 0 % (0-3) Neutrophils # (Auto) 3.5 x10^3/uL (1.8-7.7) 3.9 x10^3/uL (1.8-7.7) Lymphocytes # (Auto) 0.9 x10^3/uL (1.0-4.8) 0.5 x10^3/uL (1.0-4.8) Monocytes # (Auto) 0.4 x10^3/uL (0.0-1.1) 0.1 x10^3/uL (0.0-1.1) Eosinophils # (Auto) 0.2 x10^3/uL (0.0-0.7) 0.0 x10^3/uL (0.0-0.7) Basophils # (Auto) 0.0 x10^3/uL (0.0-0.2) 0.0 x10^3/uL (0.0-0.2) Sodium Level 150 mmol/L (136-145) 146 mmol/L (136-145) Potassium Level 4.4 mmol/L (3.5-5.1) 4.8 mmol/L (3.5-5.1) Chloride Level 107 mmol/L (98-107) 106 mmol/L (98-107) Carbon Dioxide Level 40 mmol/L (21-32) 38 mmol/L (21-32) Anion Gap 3 (6-14) 2 (6-14) Blood Urea Nitrogen 21 mg/dL (7-20) 20 mg/dL (7-20) Creatinine 0.8 mg/dL (0.6-1.0) 1.0 mg/dL (0.6-1.0) Estimated GFR (Cockcroft-Gault) 69.0 53.3 BUN/Creatinine Ratio 26 (6-20) 20 (6-20) Glucose Level 133 mg/dL (70-99) 188 mg/dL (70-99) Calcium Level 9.2 mg/dL (8.5-10.1) 8.5 mg/dL (8.5-10.1) Total Bilirubin 0.3 mg/dL (0.2-1.0) 0.2 mg/dL (0.2-1.0) Aspartate Amino Transf (AST/SGOT) 10 U/L (15-37) 14 U/L (15-37) Alanine Aminotransferase (ALT/SGPT) 13 U/L (14-59) 14 U/L (14-59) Alkaline Phosphatase 98 U/L (46-116) 92 U/L (46-116) Total Protein 6.7 g/dL (6.4-8.2) 6.3 g/dL (6.4-8.2) Albumin 2.9 g/dL (3.4-5.0) 2.7 g/dL (3.4-5.0) Albumin/Globulin Ratio 0.8 (1.0-1.7) 0.8 (1.0-1.7) Lipase 104 U/L (73-393) Urine Collection Type Unknown Urine Color Yellow Urine Clarity Clear Urine pH 5.0 (<5.0-8.0) Urine Specific [place] 1.010 (1.000-1.030) Urine Protein Negative mg/dL (NEG-TRACE) Urine Glucose (UA) Negative mg/dL (NEG) Urine Ketones (Stick) Negative mg/dL (NEG) Urine Blood Negative (NEG) Urine Nitrite Negative (NEG) Urine Bilirubin Negative (NEG) Urine Urobilinogen Dipstick 0.2 mg/dL (0.2 mg/dL) Urine Leukocyte Esterase Moderate (NEG) Urine RBC 0 /HPF (0-2) Urine WBC 11-20 /HPF (0-4) Urine Squamous Epithelial Cells Few /LPF Urine Bacteria Few /HPF (0-FEW) Urine Hyaline Casts Few /HPF Urine Mucus Slight /LPF Bedside Venous pH 7.34 (7.32-7.42) Bedside Venous pCO2 86 mmHg (41-51) Bedside Venous pO2 194 mmHg (20-40) Venous Blood HCO3 46 mmol/L (24-28) POC Venous O2 Saturation (Thelma) 100 % Bedside FiO2 21.0 Review of Systems Review of Systems: stronger, slept better, able to eat, feeling better, wants to start PT and ot Assessment and Plan Assessmemt and Plan Problems Medical Problems: (1) Chest pain Status: Acute (2) Congestive heart failure Status: Acute (3) Diarrhea Status: Acute (4) Hypercapnic respiratory failure Status: Acute (5) Hypernatremia Status: Acute Comment Review of Relevant I have reviewed the following items jt (where applicable) has been applied. Medications: Current Medications Medications (Trade) Dose Ordered Sig/Agata Route PRN Reason Start Time Stop Time Status Last Admin Dose Admin Sodium Chloride 500 ml @ 500 mls/hr 1X ONCE IV 07/02/20 15:00 07/02/20 15:59 DC 07/02/20 15:05 Iohexol (Omnipaque 300 Mg/ml) 75 ml 1X ONCE IV 07/02/20 15:00 07/02/20 15:04 DC 07/02/20 15:00 Iohexol (Omnipaque 240 Mg/ml) 50 ml 1X ONCE PO 07/02/20 15:00 07/02/20 15:04 DC 07/02/20 15:00 Dexamethasone Sodium Phosphate (Decadron) 10 mg 1X ONCE IVP 07/02/20 18:30 07/02/20 18:31 DC 07/02/20 19:19 Albuterol/ Ipratropium (Duoneb) 3 ml RTQID NEB 07/02/20 20:00 07/03/20 07:38 Dextrose/Sodium Chloride 1,000 ml @ 75 mls/hr [id number] IV 07/02/20 20:00 07/02/20 20:58 Ceftriaxone Sodium (Rocephin) 1 gm Q24H IVP 07/02/20 21:00 07/02/20 20:58 Azithromycin 500 mg/Sodium Chloride 250 ml @ 250 mls/hr 1X ONCE IV 07/02/20 20:00 07/02/20 20:59 DC 07/02/20 20:00 Azithromycin (Zithromax) 250 mg DAILY PO 07/03/20 09:00 07/03/20 08:39 Allopurinol (Zyloprim) 300 mg DAILY PO 07/03/20 09:00 07/03/20 08:39 Levothyroxine Sodium (Synthroid) 125 mcg DAILY06 PO 07/03/20 06:00 07/03/20 05:46 Metoprolol Succinate (Toprol Xl) 25 mg DAILY PO 07/03/20 09:00 07/03/20 08:39 Atorvastatin Calcium (Lipitor) 80 mg DAILY PO 07/03/20 09:00 07/03/20 08:39 Budesonide (Pulmicort) 0.5 mg RTBID NEB 07/02/20 20:00 07/03/20 07:38 Pantoprazole Sodium (Protonix) 40 mg DAILYAC PO 07/03/20 07:30 07/03/20 05:46 Sertraline HCl (Zoloft) 100 mg DAILY PO 07/03/20 09:00 07/03/20 08:37 Losartan Potassium (Cozaar) 50 mg DAILY PO 07/03/20 09:00 07/03/20 08:39 Oxybutynin Chloride (Ditropan) 5 mg [id number] PO 07/02/20 21:00 07/03/20 08:37 Prednisone (Prednisone) 40 mg DAILY PO 07/03/20 09:00 07/03/20 10:17 DC 07/03/20 08:38 Enoxaparin Sodium (Lovenox 40mg Syringe) 40 mg Q24H SQ 07/02/20 21:00 07/02/20 20:59 Justifications for Admission Other Justification DIA BROCK MD Jul 03, 2020 10:20
[2020-07-03 10:51] VITALS: BP 124/56
[2020-07-03] MEDS: IV DEXTROSE 5 %-0.45 % NACL 1,000 ML IV SCH (11:24)
[2020-07-03 12:41] LABS: BASE EXCESS ABG 8 mmol/L (-3-3); HCO3 ABG 36 mmol/L (21-28); PO2 ABG 111 mmHg (65-108); SAT O2 ABG 98 % (92-99)
--- NOTE | 2020-07-03 13:36 | NUR ---
SS following for discharge planning. SS reviewed pt chart and discussed with pt RN. Pt is from home and is currently requiring oxygen at four liters nasal canula. Pt on BIPAP HS. Pt on IV Rocephin. CT of the chest today. Pulmonology following. PT/OT ordered. SS will continue to follow for discharge planning.
[2020-07-03 14:53] LABS: FIO2 ABG 5l nc; PCO2 ABG 68 mmHg (35-46)
[2020-07-03 15:00] VITALS: BP 123/54
--- NOTE | 2020-07-03 15:03 | RAD ---
EXAM: CT Chest without IV contrast INDICATION: Reason: mass like density RLL , please compare [facility] 01/20 study / Spl. Instructions: / H istory: TECHNIQUE: Multi-detector row CT images were acquired from the thoracic inlet through the upper abdo men without the use of IV contrast. Sagittal and coronal images were acquired from the transaxial krysten a. All CT scans performed at this facility utilize dose optimization techniques as appropriate to the exam, including the following: Automated exposure control and adjustment of the mA and/or KV accordi ng to patient size (this includes techniques or standardized protocols for targeted exams where dose is indication/reason for exam). COMPARISON: Noncontrast chest CT of 05/26/[address] without IV contrast of 01/24/2018. FINDINGS: The absence of IV contrast limits evaluation of soft tissue pathology. 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 There is mild dilation of the right v entricle and narrowing of the right atrium due to mass effect from the elevated right diaphragm. Thor acic aorta is upper normal at 3.8 cm in diameter. No evidence of intramural hematoma. MEDIASTINUM & VIVI: No adenopathy or masses. There are stable minimally prominent mediastinal lymph n odes including an aortopulmonary node measuring 7 mm. The right hilum is now obscured in part by cons olidation in the right lower lobe. Local IV contrast limits detail evaluation for ben enlargement i n the right hilum. LUNGS: Mild centrilobular emphysema. Previously evident masslike opacity in the right lower lobe has increased in size and shows soft tiss ue extension to the right hilum, obscuring the hilar vessels. On the 2018 study, this reportedly cata ured 4.6 x 3.2 cm in AP by transverse diameter, it now measures approximately 5.6 x 4.6 cm (image 22 of series 2). It also measures 4.2 cm in cranial caudal extent, representing an increase from 2.5 cm in 2018 and 3.2 cm in 2020 (comparing image 43 series 5 this exam with image 40 series 4 and coronal planes on the comparison study of 05/26/2019). PLEURAL SPACE: No pleural effusions or pneumothorax. OSSEOUS & SOFT TISSUE: Unremarkable ABDOMEN: Included upper abdomen shows interposition of large bowel over the liver and evidence of ma rked right diaphragmatic elevation. IMPRESSION: Right lower lobe 5.6 cm lung mass, gradually increasing since 2018. It remains suspicious for potenti al malignancy. PET CT is suggested in further evaluation in helping to guide tissue sampling which is also recommended. Electronically signed by: Lucila Purdy MD (07/03/2020 3:00 PM) [id number]
[2020-07-03 19:53] VITALS: BP 143/63
[2020-07-03] MEDS: ENOXAPARIN 40 MG/0.4 ML SYRINGE. SQ SCH (22:16)
[2020-07-03] MEDS: LACTOBACILLUS RHAMNOSUS GG 1 CAPSULE. PO SCH (22:16)
[2020-07-03] MEDS: cefTRIAXone IV Push 1 GM VIAL. IVP SCH (22:17)
[2020-07-03 22:57] VITALS: BP 120/51
[2020-07-04] VITALS (9 sets, daily range): BP systolic 107–181; BP diastolic 51–70
[2020-07-04] MEDS: IV DEXTROSE 5 %-0.45 % NACL 1,000 ML IV SCH ×2 (00:36→14:15)
[2020-07-04 04:50] LABS: BASO % 0 % (0-3); EOS % 0 % (0-3); HEMATOCRIT 21.4 % (36.0-47.0); LYMPH # 0.8 x10^3/uL (1.0-4.8); LYMPH % 14 % (24-48); MEAN CORPUSCULAR HEMOGLOBIN 29 pg (25-35); MEAN CORPUSCULAR HGB CONC 33 g/dL (31-37); MEAN CORPUSCULAR VOLUME 88 fL (79-100); MONO # 0.5 x10^3/uL (0.0-1.1); MONO % 8 % (0-9); NEUT # 4.7 x10^3/uL (1.8-7.7); NEUT % 78 % (31-73); PLATELET COUNT 138 x10^3/uL (140-400); RED BLOOD COUNT 2.45 x10^6/uL (3.50-5.40); RED CELL DISTRIBUTION WIDTH 16.1 % (11.5-14.5)
[2020-07-04 05:07] LABS: GFR 53.3; POTASSIUM 3.9 mmol/L (3.5-5.1)
[2020-07-04] MEDS: PANTOPRAZOLE 40 MG TABLET.DR. PO SCH (05:26)
[2020-07-04] MEDS: LEVOTHYROXINE 125 MCG TABLET PO SCH (05:26)
[2020-07-04] MEDS: BUDESONIDE 0.5 MG/2 ML NEBU. NEB SCH ×2 (07:48→21:05)
[2020-07-04] MEDS: IPRATRPIUM/ALBUTEROL 0.5/2.5MG 3 ML NEBU. NEB SCH ×4 (07:48→21:05)
--- NOTE | 2020-07-04 08:12 | PDOC ---
[facility] [facility] PROGRESS NOTE Date of Service DOS: DATE: 07/04/20 TIME: 07:59 Chief Complaint Chief Complaint metabolic encephalopathy chronic resp hypercarbia COPD, with chronic hypoxia, 4 liters, BIPAP HS, has JARON, UTI, rocephin lethargy, weakness diarrhea, dehydration, hypernatremia, cont the IV fluid moderate malnutrition,, encourage PO, consult nutrition, acute illness, History of Present Illness History of Present Illness Ms. Parks, is an 80-year-old female admti with weaknes and confusion, seen in the ER with her daughter, She has Hx of congestive heart failure, COPD sternal paralysis, she reports not feeling well for over a week, having about 4 days of weakness, and > 1 day of confusion, her daughter said she didnt feel well enough to do the laundry like she normally does starting about a week ago, or so. she has had diarrhea, and has not been wearing her BIPAP at night that she needs for JARON, probably due to confusion. she has had some abdominal pain only comes on when she gets gurgling in her lower abdomen. 07/04/2020 Patient seen and evaluated. Currently afebrile, breathing 2 L nasal cannula. Per pulmonology, no need for any invasive biopsy regarding the mass-like density in the right lower lobe, however, follow-up CT chest recommended. Continue BiPAP at bedtime. Her baseline oxygen needs are [address] abdomen pelvis showing cholelithiasis without any evidence of cholecystitis. Will discontinue antibiotics. Hemoglobin 7.0 this morning; iron studies show anemia of chronic disease. Will transfuse 1 unit PRBC. Vitals/I&O Vitals/I&O: Vital Signs Date Time Temp Pulse Resp B/P (MAP) Pulse Ox O2 Delivery O2 Flow Rate FiO2 07/04/20 07:50 93 Nasal Cannula 2.0 07/04/20 02:38 98.0 68 19 126/60 (82) 98.0 I & O 07/03/20 07/03/20 07/04/20 15:00 23:00 07:00 Intake Total 480 ml 800 ml 120 ml Output Total 400 ml 750 ml Balance 80 ml 800 ml -630 ml Physical Exam General: Alert, Oriented X3, Cooperative, No acute distress Heart: Normal S1 Lungs: Crackles Abdomen: Normal bowel sounds, Soft Extremities: No clubbing, No edema Skin: No breakdown, No significant lesion Labs Labs: Laboratory Tests Test 07/03/20 12:00 07/04/20 03:50 O2 Saturation 98 % (92-99) Arterial Blood pH 7.34 (7.35-7.45) Arterial Blood pCO2 at Patient Temp 68 mmHg (35-46) Arterial Blood pO2 at Patient Temp 111 mmHg (65-108) Arterial Blood HCO3 36 mmol/L (21-28) Arterial Blood Base Excess 8 mmol/L (-3-3) FiO2 5l nc White Blood Count 6.0 x10^3/uL (4.0-11.0) Red Blood Count 2.45 x10^6/uL (3.50-5.40) Hemoglobin 7.0 g/dL (12.0-15.5) Hematocrit 21.4 % (36.0-47.0) Mean Corpuscular Volume 88 fL (79-100) Mean Corpuscular Hemoglobin 29 pg (25-35) Mean Corpuscular Hemoglobin Concent 33 g/dL (31-37) Red Cell Distribution Width 16.1 % (11.5-14.5) Platelet Count 138 x10^3/uL (140-400) Neutrophils (%) (Auto) 78 % (31-73) Lymphocytes (%) (Auto) 14 % (24-48) Monocytes (%) (Auto) 8 % (0-9) Eosinophils (%) (Auto) 0 % (0-3) Basophils (%) (Auto) 0 % (0-3) Neutrophils # (Auto) 4.7 x10^3/uL (1.8-7.7) Lymphocytes # (Auto) 0.8 x10^3/uL (1.0-4.8) Monocytes # (Auto) 0.5 x10^3/uL (0.0-1.1) Eosinophils # (Auto) 0.0 x10^3/uL (0.0-0.7) Basophils # (Auto) 0.0 x10^3/uL (0.0-0.2) Sodium Level 145 mmol/L (136-145) Potassium Level 3.9 mmol/L (3.5-5.1) Chloride Level 106 mmol/L (98-107) Carbon Dioxide Level 37 mmol/L (21-32) Anion Gap 2 (6-14) Blood Urea Nitrogen 20 mg/dL (7-20) Creatinine 1.0 mg/dL (0.6-1.0) Estimated GFR (Cockcroft-Gault) 53.3 Glucose Level 116 mg/dL (70-99) Calcium Level 8.0 mg/dL (8.5-10.1) Iron Level 37 ug/dL (50-170) Total Iron Binding Capacity 232 ug/dL (250-450) Iron Saturation 16 % (15-34) Assessment and Plan Assessmemt and Plan Problems Medical Problems: (1) Chest pain Status: Acute (2) Congestive heart failure Status: Acute (3) Diarrhea Status: Acute (4) Hypercapnic respiratory failure Status: Acute (5) Hypernatremia Status: Acute Comment Review of Relevant I have reviewed the following items jt (where applicable) has been applied. Medications: Current Medications Medications (Trade) Dose Ordered Sig/Agata Route PRN Reason Start Time Stop Time Status Last Admin Dose Admin Azithromycin (Zithromax) 250 mg DAILY PO 07/03/20 09:00 07/03/20 10:19 DC 07/03/20 08:39 Allopurinol (Zyloprim) 300 mg DAILY PO 07/03/20 09:00 07/03/20 08:39 Metoprolol Succinate (Toprol Xl) 25 mg DAILY PO 07/03/20 09:00 07/03/20 08:39 Atorvastatin Calcium (Lipitor) 80 mg DAILY PO 07/03/20 09:00 07/03/20 08:39 Sertraline HCl (Zoloft) 100 mg DAILY PO 07/03/20 09:00 07/03/20 08:37 Losartan Potassium (Cozaar) 50 mg DAILY PO 07/03/20 09:00 07/03/20 08:39 Prednisone (Prednisone) 40 mg DAILY PO 07/03/20 09:00 07/03/20 10:17 DC 07/03/20 08:38 Lactobacillus Rhamnosus (Culturelle) 1 cap BID PO 07/03/20 21:00 07/03/20 22:16 Justifications for Admission Other Justification LOURDES FRAGA MD Jul 04, 2020 08:12
[2020-07-04] MEDS: LACTOBACILLUS RHAMNOSUS GG 1 CAPSULE. PO SCH ×2 (08:42→20:28)
[2020-07-04] MEDS: ATORVASTATIN CALCIUM 40 MG TABLET. PO SCH (08:43)
[2020-07-04] MEDS: SERTRALINE 50 MG TABLET. PO SCH (08:43)
[2020-07-04] MEDS: LOSARTAN POTASSIUM 50 MG TABLET. PO SCH (08:43)
[2020-07-04] MEDS: ALLOPURINOL 300 MG TABLET. PO SCH (08:43)
[2020-07-04] MEDS: METOPROLOL SUCC 24HR ER 25 MG TAB.ER.24H. PO SCH (08:44)
[2020-07-04] MEDS: OXYBUTYNIN CHLORIDE 5 MG TABLET PO SCH ×3 (08:45→20:28)
--- NOTE | 2020-07-04 11:16 | NUR ---
SS following up with discharge planning. SS reviewed pt chart and discussed with pt RN. Pt is currently requiring oxygen at two liters nasal canula. Pt has home oxygen and home BIPAP. Pt on IV Rocephin. Pt getting blood transfusion this morning. PT/OT recommended fdc unit. COVID19 test pending for placement. SS met with pt and contacted pt's daughter via phone to discuss discharge planning and fdc unit. Pt and pt's daughter agreeable to fdc unit. SS informed that pt had Umberto&Umberto COVID19 vaccine on 06/10/2020. Pt's daughter requesting [facility], ; fax [phone]. SS phoned and faxed referral as requested. SS will continue to follow for discharge planning.
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
[2020-07-04 12:30] LABS: PROTHROMBIN TIME PATIENT 14.5 SEC (11.7-14.0)
[2020-07-05] VITALS (19 sets, daily range): BP systolic 110–175; BP diastolic 42–71
--- NOTE | 2020-07-05 00:49 | NUR ---
pt placed on bipap at bed time woke up at 0030 and was totally confused. knew self only. lcrn
[2020-07-05] MEDS: IV DEXTROSE 5 %-0.45 % NACL 1,000 ML IV SCH ×2 (01:20→19:47)
[2020-07-05 04:52] LABS: HEMATOCRIT 23.9 % (36.0-47.0); HEMOGLOBIN 7.7 g/dL (12.0-15.5); RED BLOOD COUNT 2.71 x10^6/uL (3.50-5.40); RED CELL DISTRIBUTION WIDTH 15.9 % (11.5-14.5); WHITE BLOOD COUNT 5.5 x10^3/uL (4.0-11.0)
[2020-07-05] MEDS: IPRATRPIUM/ALBUTEROL 0.5/2.5MG 3 ML NEBU. NEB SCH ×4 (07:22→20:00)
[2020-07-05] MEDS: BUDESONIDE 0.5 MG/2 ML NEBU. NEB SCH ×2 (07:23→20:00)
[2020-07-05] MEDS: LEVOTHYROXINE 125 MCG TABLET PO SCH (08:38)
[2020-07-05] MEDS: PANTOPRAZOLE 40 MG TABLET.DR. PO SCH (08:39)
[2020-07-05] MEDS: LOSARTAN POTASSIUM 50 MG TABLET. PO SCH (08:39)
[2020-07-05] MEDS: METOPROLOL SUCC 24HR ER 25 MG TAB.ER.24H. PO SCH (08:40)
[2020-07-05] MEDS: OXYBUTYNIN CHLORIDE 5 MG TABLET PO SCH ×3 (09:00→21:06)
--- NOTE | 2020-07-05 09:40 | PDOC ---
[employer] PROGRESS NOTE Date of Service DOS: DATE: 07/05/20 TIME: 09:38 Chief Complaint Chief Complaint metabolic encephalopathy chronic resp hypercarbia COPD, with chronic hypoxia, 4 liters, BIPAP HS, has JARON, UTI, rocephin lethargy, weakness diarrhea, dehydration, hypernatremia, cont the IV fluid moderate malnutrition,, encourage PO, consult nutrition, acute illness, History of Present Illness History of Present Illness Ms. Parks, is an 80-year-old female admti with weaknes and confusion, seen in the ER with her daughter, She has Hx of congestive heart failure, COPD sternal paralysis, she reports not feeling well for over a week, having about 4 days of weakness, and > 1 day of confusion, her daughter said she didnt feel well enough to do the laundry like she normally does starting about a week ago, or so. she has had diarrhea, and has not been wearing her BIPAP at night that she needs for JARON, probably due to confusion. she has had some abdominal pain only comes on when she gets gurgling in her lower abdomen. 07/05/2020 Patient seen and examined at bedside. No acute events overnight. She has no complaints currently except for the alcohol dehydrated. Discussed with biopsy of right lung mass today. Discussed with patient and daughter, answered their questions to the best my ability. 07/04/2020 Patient seen and evaluated. Currently afebrile, breathing 2 L nasal cannula. Per pulmonology, no need for any invasive biopsy regarding the mass-like density in the right lower lobe, however, follow-up CT chest recommended. Continue BiPAP at bedtime. Her baseline oxygen needs are [address] abdomen pelvis showing cholelithiasis without any evidence of cholecystitis. Will discontinue antibiotics. Hemoglobin 7.0 this morning; iron studies show anemia of chronic disease. Will transfuse 1 unit PRBC. Vitals/I&O Vitals/I&O: Vital Signs Date Time Temp Pulse Resp B/P (MAP) Pulse Ox O2 Delivery O2 Flow Rate FiO2 07/05/20 08:40 62 159/70 07/05/20 07:23 94 Nasal Cannula 2.0 07/05/20 07:00 98.0 17 98.0 I & O 07/04/20 07/04/20 07/05/20 15:00 23:00 07:00 Intake Total 685 ml 300 ml 1000 ml Output Total 100 ml 350 ml 750 ml Balance 585 ml -50 ml 250 ml Physical Exam General: Alert, Oriented X3, Cooperative, No acute distress Heart: Normal S1 Lungs: Clear Abdomen: Normal bowel sounds, Soft Extremities: No clubbing, No edema Skin: No breakdown, No significant lesion Labs Labs: Laboratory Tests Test 07/05/20 04:10 07/05/20 08:20 White Blood Count 5.5 x10^3/uL (4.0-11.0) Red Blood Count 2.71 x10^6/uL (3.50-5.40) Hemoglobin 7.7 g/dL (12.0-15.5) Hematocrit 23.9 % (36.0-47.0) Mean Corpuscular Volume 88 fL (79-100) Mean Corpuscular Hemoglobin 29 pg (25-35) Mean Corpuscular Hemoglobin Concent 32 g/dL (31-37) Red Cell Distribution Width 15.9 % (11.5-14.5) Platelet Count 133 x10^3/uL (140-400) SARS-CoV-2 Antigen (Rapid) Negative (NEGATIVE) Assessment and Plan Assessmemt and Plan Problems Medical Problems: (1) Chest pain Status: Acute (2) Congestive heart failure Status: Acute (3) Diarrhea Status: Acute (4) Hypercapnic respiratory failure Status: Acute (5) Hypernatremia Status: Acute Comment Review of Relevant I have reviewed the following items jt (where applicable) has been applied. Justifications for Admission Other Justification LOURDES FRAGA MD Jul 05, 2020 09:40
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
--- NOTE | 2020-07-05 13:52 | NUR ---
SS following up with discharge planning. SS reviewed pt chart and discussed with pt RN. Pt is currently requiring oxygen at two liters nasal canula at rest. COVID19 negative. Pt has home oxygen and home BIPAP machine. PT/OT recommended senior living unit. Pt accepted at [facility], ; fax [phone]. Pt having lung biopsy today. SS will continue to follow for discharge planning.
[2020-07-05] MEDS ORDERED: LIDOCAINE WITH 8.4% SOD BICARB 3 ML DISP.SYRIN. ONE (14:02)
[2020-07-05] MEDS ORDERED: fentaNYL PF VIAL 100 MCG/2 ML VIAL ONE (14:23)
[2020-07-05] MEDS ORDERED: MIDAZOLAM HCL/PF 2 MG/2 ML VIAL. ONE (14:23)
[2020-07-05] MEDS ORDERED: FLUMAZENIL 0.5 MG/5 ML VIAL. IV ONE (14:23)
[2020-07-05] MEDS ORDERED: fentaNYL PF VIAL 100 MCG/2 ML VIAL IV ONE (14:45)
[2020-07-05] MEDS ORDERED: LIDOCAINE WITH 8.4% SOD BICARB 3 ML DISP.SYRIN. IJ ONE (14:45)
[2020-07-05] MEDS ORDERED: MIDAZOLAM HCL/PF 2 MG/2 ML VIAL. IV ONE (14:45)
--- NOTE | 2020-07-05 15:24 | PDOC ---
MODERATE SEDATION ASSESSMENT RISKS/ALTERNATIVES Risks/Alternatives Risks and alternatives of this type of sedation and procedure discussed with: RISK/ALTERNATIVES: Patient H & P ON CHART H & P H & P on chart and reviewed for co-morbid conditions and appropriate labs. H&P ON CHART: Yes STATUS PREG STATUS ASSESSED: Yes MEDS/ALLERGIES REVIEWED Meds/Allergies Reviewed Medications and Allergies including time and route of recently administered narcotics and sedatives. MEDS/ALLERGIES REVIEWED: Yes ASA RATING ASA RATING: II AIRWAY ASSESSMENT Airway Assessment Airway patency, oral function limitations, presence of caps, crowns, dentures, partials, and ability to extend neck assessed. AIRWAY ASSESSMENT: Yes MALLAMPATI SCORE MALLAMPATI SCORE: II PRE-SEDATION ASSESSMENT PRE-SEDATION ASSESSMENT: Yes EDIE WYLIE MD Jul 05, 2020 15:24
--- NOTE | 2020-07-05 15:24 | PDOC ---
BRIEF OPERATIVE NOTE Pre-Op Diagnosis right lung mass Post-Op Diagnosis same Procedure Performed ct biopsy of right lung mass Surgeon Ana EBL minimal Anesthesia Type: Conscious Sedation Specimens Obtained 4 x 20g cores Findings CT right lung biopsy Complications no immediate EDIE WYLIE MD Jul 05, 2020 15:24
--- NOTE | 2020-07-05 15:39 | RAD ---
Procedure: CT-guided right lung biopsy Clinical Indication: Adult female with right lung mass Sedation: Conscious sedation was administered with a total intraprocedural vsps-fo-enoa time of 19 minutes. The patient was monitored by a qualified independent observer throughout the time of sedation. Please refer to the medical record for exact doses of medications utilized to achieve moderate sedation. Antibiotics: None Sterility: The procedure was performed in its entirety using appropriate elements of sterile technique. Consent: The procedure was explained in its entirety to the patient or the patients designated front office representative by a member of the treatment team, including a discussion of the risks, benefits and commonly accepted alternatives to the procedure, as well as the expected consequences of no therapy whatsoever. Discussion of the risks included, but was not limited to, those that are most frequent and those that are rare but possibly severe or life-threatening, as well as the possibility of unforeseen complications. Technique and Findings: Following informed consent, the patient was prepped and draped in usual sterile fashion. Preliminary CT scan of the area of interest was performed. 1% lidocaine was used to achieve local anesthesia. A small dermatotomy was made. Under periodic CT surveillance, a 19-gauge needle guide was advanced towards the target lesion and multiple separate 20-gauge core biopsy specimens were obtained and divided between formalin and nonbacterial static saline for microbiologic analysis. A blood patch was applied as the needle guide was removed and hemostasis was achieved with manual compression. Postprocedural CT scan demonstrates a small localized pneumothorax. Complications: Small localized postoperative pneumothorax. Impression: 1. CT-guided right lung mass biopsy as described. PQRS Compliance Statement: One or more of the following individualized dose reduction techniques were utilized for this examination: 1. Automated exposure control 2. Adjustment of the mA and/or kV according to patient size 3. Use of iterative reconstruction technique
--- NOTE | 2020-07-05 16:39 | RAD ---
EXAM: CHEST ONE VIEW. HISTORY: Right lung biopsy. COMPARISON: 07/02/2020. FINDINGS: A frontal view of the chest is obtained. There are changes of coronary artery bypass grafti ng. The right hemidiaphragm is moderately to severely elevated. Linear opacities in both bases indicate a telectasis and and possibly mild pulmonary edema. The right basilar mass is mostly obscured. There is no pneumothorax or clear pleural effusion. The heart is not enlarged. There are atherosclerotic calc ifications of the aorta. There is contrast in the colon from a prior procedure. IMPRESSION: 1. No pneumothorax. 2. Bibasilar interstitial opacities are consistent with atelectasis and mild pulmonary edema. Refer t o prior CT for description of right basilar mass. Electronically signed by: eJremi Stein MD (07/05/2020 4:37 PM) [facility]
[2020-07-05] MEDS: ATORVASTATIN CALCIUM 40 MG TABLET. PO SCH (17:01)
[2020-07-05] MEDS: LACTOBACILLUS RHAMNOSUS GG 1 CAPSULE. PO SCH ×2 (17:01→21:06)
[2020-07-05] MEDS: ALLOPURINOL 300 MG TABLET. PO SCH (17:01)
[2020-07-05] MEDS: SERTRALINE 50 MG TABLET. PO SCH (17:01)
[2020-07-05] MEDS: metFORMIN XR 500 MG TAB.ER.24H PO SCH (17:01)
[2020-07-06 02:36] VITALS: BP 123/61
[2020-07-06 05:58] VITALS: BP 150/67
[2020-07-06 06:01] VITALS: BP 150/67
[2020-07-06] MEDS: PANTOPRAZOLE 40 MG TABLET.DR. PO SCH (06:03)
[2020-07-06] MEDS: LEVOTHYROXINE 125 MCG TABLET PO SCH (06:03)
[2020-07-06] MEDS: BUDESONIDE 0.5 MG/2 ML NEBU. NEB SCH (07:15)
[2020-07-06] MEDS: IPRATRPIUM/ALBUTEROL 0.5/2.5MG 3 ML NEBU. NEB SCH ×2 (07:15→12:15)
[2020-07-06 07:46] LABS: HEMATOCRIT 25.8 % (36.0-47.0); HEMOGLOBIN 8.1 g/dL (12.0-15.5); RED BLOOD COUNT 2.89 x10^6/uL (3.50-5.40); RED CELL DISTRIBUTION WIDTH 15.9 % (11.5-14.5); WHITE BLOOD COUNT 6.3 x10^3/uL (4.0-11.0)
--- NOTE | 2020-07-06 08:50 | PDOC ---
[employer] PROGRESS NOTE Date of Service DOS: DATE: 07/06/20 TIME: 08:48 Chief Complaint Chief Complaint metabolic encephalopathy chronic resp hypercarbia COPD, with chronic hypoxia, 4 liters, BIPAP HS, has JARON, UTI, rocephin lethargy, weakness diarrhea, dehydration, hypernatremia, cont the IV fluid moderate malnutrition,, encourage PO, consult nutrition, acute illness, History of Present Illness History of Present Illness Ms. Parks, is an 80-year-old female admti with weaknes and confusion, seen in the ER with her daughter, She has Hx of congestive heart failure, COPD sternal paralysis, she reports not feeling well for over a week, having about 4 days of weakness, and > 1 day of confusion, her daughter said she didnt feel well enough to do the laundry like she normally does starting about a week ago, or so. she has had diarrhea, and has not been wearing her BIPAP at night that she needs for JARON, probably due to confusion. she has had some abdominal pain only comes on when she gets gurgling in her lower abdomen. 07/06/2020 Patient seen and evaluated, currently breathing on 3 L nasal cannula. She has home O2 and BiPAP. S/P CT biopsy of right lung mass. PT/OT recommending fdc and she has been accepted at [facility]. Plan to disc harge to [facility] today, if cannot happen over the weekend she will discharge on Wednesday. Greater than 30 minutes was spent managing the discharge of this patient. 07/05/2020 Patient seen and examined at bedside. No acute events overnight. She has no complaints currently except for the alcohol dehydrated. Discussed with biopsy of right lung mass today. Discussed with patient and daughter, answered their questions to the best my ability. 07/04/2020 Patient seen and evaluated. Currently afebrile, breathing 2 L nasal cannula. Per pulmonology, no need for any invasive biopsy regarding the mass-like density in the right lower lobe, however, follow-up CT chest recommended. Continue BiPAP at bedtime. Her baseline oxygen needs are [address] abdomen pelvis showing cholelithiasis without any evidence of cholecystitis. Will discontinue antibiotics. Hemoglobin 7.0 this morning; iron studies show anemia of chronic disease. Will transfuse 1 unit PRBC. Vitals/I&O Vitals/I&O: Vital Signs Date Time Temp Pulse Resp B/P (MAP) Pulse Ox O2 Delivery O2 Flow Rate FiO2 07/06/20 07:15 98 Nasal Cannula 3.0 07/06/20 06:01 97.5 61 16 150/67 (94) 97.5 I & O 07/05/20 07/05/20 07/06/20 15:00 23:00 07:00 Intake Total 300 ml Output Total 600 ml 200 ml Balance -600 ml 100 ml Physical Exam General: Alert, Oriented X3, Cooperative, No acute distress Heart: Normal S1 Lungs: Clear Abdomen: Normal bowel sounds, Soft Extremities: No clubbing, No edema Skin: No breakdown, No significant lesion Labs Labs: Laboratory Tests Test 07/05/20 21:07 07/06/20 07:35 Glucose (Fingerstick) 128 mg/dL (70-99) White Blood Count 6.3 x10^3/uL (4.0-11.0) Red Blood Count 2.89 x10^6/uL (3.50-5.40) Hemoglobin 8.1 g/dL (12.0-15.5) Hematocrit 25.8 % (36.0-47.0) Mean Corpuscular Volume 90 fL (79-100) Mean Corpuscular Hemoglobin 28 pg (25-35) Mean Corpuscular Hemoglobin Concent 31 g/dL (31-37) Red Cell Distribution Width 15.9 % (11.5-14.5) Platelet Count 125 x10^3/uL (140-400) Assessment and Plan Assessmemt and Plan Problems Medical Problems: (1) Chest pain Status: Acute (2) Congestive heart failure Status: Acute (3) Diarrhea Status: Acute (4) Hypercapnic respiratory failure Status: Acute (5) Hypernatremia Status: Acute Comment Review of Relevant I have reviewed the following items jt (where applicable) has been applied. Medications: Current Medications Medications (Trade) Dose Ordered Sig/Agata Route PRN Reason Start Time Stop Time Status Last Admin Dose Admin Lidocaine HCl (Buffered Lidocaine 1%) 3 ml 1X ONCE IJ 07/05/20 14:45 07/05/20 14:46 DC 07/05/20 14:45 Midazolam HCl (Versed) 2 mg 1X ONCE IV 07/05/20 14:45 07/05/20 14:46 DC 07/05/20 14:45 Fentanyl Citrate (Fentanyl 2ml Vial) 100 mcg 1X ONCE IV 07/05/20 14:45 07/05/20 14:46 DC 07/05/20 14:45 Justifications for Admission Other Justification LOURDES FRAGA MD Jul 06, 2020 08:50
[2020-07-06] MEDS: ALLOPURINOL 300 MG TABLET. PO SCH (09:10)
[2020-07-06] MEDS: METOPROLOL SUCC 24HR ER 25 MG TAB.ER.24H. PO SCH (09:10)
[2020-07-06] MEDS: metFORMIN XR 500 MG TAB.ER.24H PO SCH (09:10)
[2020-07-06] MEDS: SERTRALINE 50 MG TABLET. PO SCH (09:11)
[2020-07-06] MEDS: LOSARTAN POTASSIUM 50 MG TABLET. PO SCH (09:11)
[2020-07-06] MEDS: ATORVASTATIN CALCIUM 40 MG TABLET. PO SCH (09:11)
[2020-07-06] MEDS: OXYBUTYNIN CHLORIDE 5 MG TABLET PO SCH (09:11)
[2020-07-06] MEDS: LACTOBACILLUS RHAMNOSUS GG 1 CAPSULE. PO SCH (09:11)
--- NOTE | 2020-07-06 09:55 | PDOC3 ---
Discharge Summary Visit Information Date of Admission: Jul 02, 2020 Date of Discharge: Jul 06, 2020 Final Diagnosis Problems Medical Problems: (1) Chest pain Status: Acute (2) Congestive heart failure Status: Acute (3) Diarrhea Status: Acute (4) Hypercapnic respiratory failure Status: Acute (5) Hypernatremia Status: Acute Brief Hospital Course Allergies Allergies Coded Allergies Type Severity Reaction Last Updated Verified Sulfa (Sulfonamide Antibiotics) Allergy Intermediate 04/07/18 Yes diazepam Allergy Intermediate 04/07/18 Yes Vital Signs Vital Signs Date Time Temp Pulse Resp B/P (MAP) Pulse Ox O2 Delivery O2 Flow Rate FiO2 07/06/20 09:11 66 150/67 07/06/20 07:15 98 Nasal Cannula 3.0 07/06/20 06:01 97.5 16 97.5 Lab Results Laboratory Tests Test 07/04/20 10:25 07/05/20 04:10 07/05/20 08:20 07/05/20 21:07 Coronavirus (PCR) Not detected (Not Detected) White Blood Count 5.5 x10^3/uL (4.0-11.0) Red Blood Count 2.71 x10^6/uL (3.50-5.40) Hemoglobin 7.7 g/dL (12.0-15.5) Hematocrit 23.9 % (36.0-47.0) Mean Corpuscular Volume 88 fL (79-100) Mean Corpuscular Hemoglobin 29 pg (25-35) Mean Corpuscular Hemoglobin Concent 32 g/dL (31-37) Red Cell Distribution Width 15.9 % (11.5-14.5) Platelet Count 133 x10^3/uL (140-400) SARS-CoV-2 Antigen (Rapid) Negative (NEGATIVE) Glucose (Fingerstick) 128 mg/dL (70-99) Test 07/06/20 07:35 White Blood Count 6.3 x10^3/uL (4.0-11.0) Red Blood Count 2.89 x10^6/uL (3.50-5.40) Hemoglobin 8.1 g/dL (12.0-15.5) Hematocrit 25.8 % (36.0-47.0) Mean Corpuscular Volume 90 fL (79-100) Mean Corpuscular Hemoglobin 28 pg (25-35) Mean Corpuscular Hemoglobin Concent 31 g/dL (31-37) Red Cell Distribution Width 15.9 % (11.5-14.5) Platelet Count 125 x10^3/uL (140-400) Laboratory Tests Test 07/05/20 21:07 07/06/20 07:35 Glucose (Fingerstick) 128 mg/dL (70-99) White Blood Count 6.3 x10^3/uL (4.0-11.0) Red Blood Count 2.89 x10^6/uL (3.50-5.40) Hemoglobin 8.1 g/dL (12.0-15.5) Hematocrit 25.8 % (36.0-47.0) Mean Corpuscular Volume 90 fL (79-100) Mean Corpuscular Hemoglobin 28 pg (25-35) Mean Corpuscular Hemoglobin Concent 31 g/dL (31-37) Red Cell Distribution Width 15.9 % (11.5-14.5) Platelet Count 125 x10^3/uL (140-400) Brief Hospital Course Ms. Parks is a 80 old female who presented with acute encephalopathy and acute on chronic hypercapnia. She has history of masslike density in the right lower lobe, present since 01/2018. In 2018 was 4.5 cm in size, currently 5.5 cm in size. Consultation was placed to pulmonology. She had CT-guided biopsy. She had been accepted and discharged to [facility] for skilled rehab. Discharge Information Condition at Discharge: Stable Follow Up: Weeks Disposition/Orders: D/C to Another Facility Scheduled Allopurinol (Allopurinol) 300 Mg Tablet, 300 MG PO DAILY, (Reported) Entered as Reported by: JOANN VALLADARES RN on 04/07/181003 Last Action: Continued on 07/02/201935 by DIA BROCK Atorvastatin Calcium (Lipitor) 80 Mg Tablet, 1 TAB PO DAILY, #30 Ref 5 (Reported) Entered as Reported by: JOANN VALLADARES RN on 04/07/181003 Last Action: Converted on 07/02/201935 by DIA BROCK Doxycycline Hyclate (Doxycycline Hyclate) 100 Mg Tablet, 100 MG PO BID for COPD for 7 Days, #14 Prescribed by: MIKI GOODSON MD on 04/11/18 1221 Last Action: HELD on 07/02/201935 by DIA BROCK Levothyroxine Sodium (Synthroid) 125 Mcg Tablet, 1 TAB PO DAILY, #30 Ref 5 (Reported) Entered as Reported by: JOANN VALLADARES RN on 04/07/181003 Last Action: Continued on 07/02/201935 by DIA BROCK Metformin Hcl (Metformin Hcl Er) 500 Mg Tab.er.24h, 500 MG PO DAILYWBKFT for ANTI-DIABETIC, Ref 0 (Reported) Entered as Reported by: JOANN VALLADARES RN on 04/07/181003 Last Action: Continued on 07/02/201935 by DIA BROCK Metoprolol Succinate (Metoprolol Succinate ( Xl )) 25 Mg Tab.er.24h, 1 TAB PO DAILY, #30 Ref 5 (Reported) Entered as Reported by: JOANN VALLADARES RN on 04/07/181003 Last Action: Continued on 07/02/201935 by DIA BROCK Mometasone/Formoterol (Dulera 200 Mcg/5 Mcg Inhaler) 13 Gm Hfa.aer.ad, 2 PUFF IH BID, #13 Ref 3 (Reported) Entered as Reported by: JOANN VALLADARES RN on 04/07/181003 Last Action: Converted on 07/02/201935 by DIA BROCK Omeprazole Magnesium (Prilosec Otc) 20 Mg Tablet.dr, 20 MG PO DAILY, (Reported) Entered as Reported by: JOANN VALLADARES RN on 04/07/181003 Last Action: Converted on 07/02/201935 by DIA BROCK Prednisone (Prednisone ) 10 Mg Tablet, 10 MG PO DAILY for COPD for 12 Days, #24 Ref 0 Prescribed by: MIKI GOODSON MD on 04/11/18 1221 Last Action: HELD on 07/02/201935 by DIA BROCK Sertraline Hcl (Zoloft) 100 Mg Tablet, 1 TAB PO DAILY, #30 Ref 5 (Reported) Entered as Reported by: JOANN VLALADARES RN on 04/07/181003 Last Action: Converted on 07/02/201935 by DIA BROCK Telmisartan (Micardis) 40 Mg Tablet, 40 MG PO DAILY, (Reported) Entered as Reported by: JOANN VALLADARES RN on 04/07/181003 Last Action: Converted on 07/02/201935 by DIA BROCK Tolterodine Tartrate (Detrol La) 4 Mg Cap.er.24h, 4 MG PO DAILY, (Reported) Entered as Reported by: JOANN VALLADARES RN on 04/07/181003 Last Action: Converted on 07/02/201935 by DIA BROCK Scheduled PRN Albuterol Sulfate (Proair Hfa) 8.5 Gm Hfa.aer.ad, 1 PUFF INH PRN Q4HRS PRN for SHORTNESS OF BREATH, (Reported) Entered as Reported by: JOANN VALLADARES RN on 04/07/181003 Last Action: HELD on 07/02/201935 by DIA BROCK Ibuprofen (Ibuprofen) 600 Mg Tablet, 600 MG PO PRN Q6HRS PRN for INFLAMMATION, (Reported) Entered as Reported by: JOANN VALLADARES RN on 04/07/181003 Last Action: HELD on 07/02/201935 by DIA BROCK Justicifation of Admission Dx: Justifications for Admission: Justification of Admission Dx: Yes (Acute respiratory failure with hypoxia and hypercapnia) LOURDES FRGAA MD Jul 06, 2020 09:54
--- NOTE | 2020-07-06 09:56 | SNU/HH DC ---
DISCHARGE ORDERS DISCHARGE INFORMATION: DISCHARGE DATE: Jul 06, 2020 FINAL DIAGNOSIS Problems Medical Problems: (1) Chest pain Status: Acute (2) Congestive heart failure Status: Acute (3) Diarrhea Status: Acute (4) Hypercapnic respiratory failure Status: Acute (5) Hypernatremia Status: Acute CONDITION ON DISCHARGE: Stable CODE STATUS: Code Status: Full HALFWAY: SNF STAY <30 DAYS: Yes POST DISCHARGE ORDERS: ACTIVITY ORDERS: Activity as tolerated WEIGHT BEARING STATUS: As tolerated DIET AFTER DISCHARGE: Cardiac CHECKS AFTER DISCHARGE: COMMENTS: UPPER BACK TREATMENT/EQUIPMENT ORDERS: Physical Therapy For: Evalulation/Treatment Occupational Therapy For: Evaluation/Treatment DISCHARGE MEDICATIONS: Home Meds Active Scripts Prednisone (PREDNISONE ) 10 Mg Tablet, 10 MG PO DAILY for COPD for 12 Days, #24 TAB 0 Refills Prov:MIKI GOODSON MD 04/11/18 Doxycycline Hyclate (DOXYCYCLINE HYCLATE) 100 Mg Tablet, 100 MG PO BID for COPD for 7 Days, #14 TAB Prov:MIKI GOODSON MD 04/11/18 Reported Medications Metformin Hcl (METFORMIN HCL ER) 500 Mg Tab.er.24h, 500 MG PO DAILYWBKFT for ANTI-DIABETIC, TAB 0 Refills 04/07/18 Allopurinol (ALLOPURINOL) 300 Mg Tablet, 300 MG PO DAILY, TAB 04/07/18 Atorvastatin Calcium (LIPITOR) 80 Mg Tablet, 1 TAB PO DAILY, #30 TAB 5 Refills 04/07/18 Metoprolol Succinate (METOPROLOL SUCCINATE ( XL )) 25 Mg Tab.er.24h, 1 TAB PO DAILY, #30 TAB 5 Refills 04/07/18 Levothyroxine Sodium (SYNTHROID) 125 Mcg Tablet, 1 TAB PO DAILY, #30 TAB 5 Refills 04/07/18 Omeprazole Magnesium (PRILOSEC OTC) 20 Mg Tablet.dr, 20 MG PO DAILY, TAB 04/07/18 Albuterol Sulfate (Proair Hfa) 8.5 Gm Hfa.aer.ad, 1 PUFF INH PRN Q4HRS PRN for SHORTNESS OF BREATH, INHALER 04/07/18 Telmisartan (MICARDIS) 40 Mg Tablet, 40 MG PO DAILY, TAB 04/07/18 Mometasone/Formoterol (DULERA 200 MCG/5 MCG INHALER) 13 Gm Hfa.aer.ad, 2 PUFF IH BID, #13 GM 3 Refills 04/07/18 Tolterodine Tartrate (DETROL LA) 4 Mg Cap.er.24h, 4 MG PO DAILY, CAP.SR 04/07/18 Sertraline Hcl (ZOLOFT) 100 Mg Tablet, 1 TAB PO DAILY, #30 TAB 5 Refills 04/07/18 Ibuprofen (IBUPROFEN) 600 Mg Tablet, 600 MG PO PRN Q6HRS PRN for INFLAMMATION, TAB 04/07/18 LOURDES FRAGA MD Jul 06, 2020 09:56
[2020-07-06 10:32] VITALS: BP 149/63
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
--- NOTE | 2020-07-06 14:43 | NUR ---
Discharge Note: ALFONSO MACK Discharge instructions and discharge home medications reviewed with Other facility and a copy given. All questions have been answered and understanding verbalized. The following instructions and handouts were given: discharge packet Discontinued lines and drains: Peripheral IV intact. [facility] to [facility] with Family Member via Wheelchair
--- NOTE | 2020-07-09 16:09 | PATHOLOGY ---
[facility] Accession Number: [id number] . 01 Material submitted: . lung - RIGHT LUNG MASS BIOPSY. Modifiers: right . 01 Clinical history: . PRE-OPERATIVE DIAGNOSIS: RLL LUNG MASS OPERATIVE PROCEDURE: RLL LUNG BIOPSY . 02 Diagnosis: Lung tissue, right lung mass needle biopsy: - ADENOCARCINOMA, WITH ASSOCIATED PULMONARY SCAR. SEE COMMENT. (JPM:ramya; 07/09/2020) S 07/09/2020 1034 Local . 02 Comment: Sections of the right lung mass needle biopsy reveal a malignant epithelial neoplasm. There are focal irregular acinar structures which infiltrate a reactive desmoplastic stroma. These acinar structures are lined by atypical cells having eosinophilic cytoplasm and possessing enlarged rounded to ovoid hyperchromatic nuclei containing prominent nucleoli. There is focal associated pulmonary scar. 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 The case is also examined by Dr. Cole, who concurs with the diagnosis. The results are reported to Dr. Rodriguez on 07/09/20 at 3:35 PM. (JPM:ramya; 07/09/2020) . 02 Electronically signed: . Alex Lara MD, Pathologist NPI- [id number] . 01 Gross description: . The specimen is received in formalin, labeled "Felisa Parks, right lung biopsy". Received are three needle cores of pale cason tissue ranging in length from 0.5-1.0 cm, with each measuring 0.1 cm in diameter. The specimen is submitted entirely in cassettes A1 through A3. (CAA; 07/08/2020) QAC/QAC 07/08/2020 1510 Local . 02 Pathologist provided ICD-10: C34.91 . 02 CPT . 448172 Specimen Comment: A courtesy copy of this report has been sent to [phone], [phone] Specimen Comment: [phone], Specimen Comment: Report sent to ,DR BROCK / DR MILLER Performed at: 01 [facility] [address] [facility] [address], [place] [id number] MD Abram Cole MD Phone: [phone] Performed at: 02 [facility] [address], [place] [id number] MD Alex Lara MD Phone: [phone]
== END 2020-07-06 15:01 | DRG 70 ==
LOC: ER 13:31 → 2 SOUTH 17:43
PROVIDERS: ADMIT Internal Medicine; ATTEND Internal Medicine
PROC: 5A09357 Assistance with Respiratory Ventilation, Less than 24 Consecutive Hours, Continuous Positive Airway Pressure (ICD-10-PCS; 2020-07-02)
PROC: 5A09357 Assistance with Respiratory Ventilation, Less than 24 Consecutive Hours, Continuous Positive Airway Pressure (ICD-10-PCS; 2020-07-03)
PROC: 30233N1 Transfusion of Nonautologous Red Blood Cells into Peripheral Vein, Percutaneous Approach (ICD-10-PCS; principal; 2020-07-04)
PROC: 5A09357 Assistance with Respiratory Ventilation, Less than 24 Consecutive Hours, Continuous Positive Airway Pressure (ICD-10-PCS; 2020-07-04)
PROC: 0BBK3ZX Excision of Right Lung, Percutaneous Approach, Diagnostic (ICD-10-PCS; 2020-07-05)
PROC: 5A09357 Assistance with Respiratory Ventilation, Less than 24 Consecutive Hours, Continuous Positive Airway Pressure (ICD-10-PCS; 2020-07-05)
DX: G93.41 Metabolic encephalopathy (principal); J96.02 Acute respiratory failure with hypercapnia; N39.0 Urinary tract infection, site not specified; J96.12 Chronic respiratory failure with hypercapnia; E44.0 Moderate protein-calorie malnutrition; E66.2 Morbid (severe) obesity with alveolar hypoventilation; E87.0 Hyperosmolality and hypernatremia; N17.9 Acute kidney failure, unspecified; J96.11 Chronic respiratory failure with hypoxia; D63.8 Anemia in other chronic diseases classified elsewhere; E03.9 Hypothyroidism, unspecified; E11.9 Type 2 diabetes mellitus without complications; E78.5 Hyperlipidemia, unspecified; E86.0 Dehydration; I11.0 Hypertensive heart disease with heart failure; I50.9 Heart failure, unspecified; J44.9 Chronic obstructive pulmonary disease, unspecified; K80.20 Calculus of gallbladder without cholecystitis without obstruction; Z82.49 Family history of ischemic heart disease and other diseases of the circulatory system; Z87.891 Personal history of nicotine dependence; Z95.1 Presence of aortocoronary bypass graft; Z68.30 Body mass index [BMI] 30.0-30.9, adult; Z88.2 Allergy status to sulfonamides; Z88.8 Allergy status to other drugs, medicaments and biological substances; Z20.822 Contact with and (suspected) exposure to COVID-19
CPT/HCPCS: 32408; 36415; 36430; 36600; 71045; 71250; 74177; 76705; 80048; 80053; 81001; 82803; 82805; 82962; 83540; 83550; 83690; 85007; 85025; 85027; 85610; 86850; 86900; 86901; 86920; 87071; 87075; 87102; 87116; 87426; 88305; 94640; 94660; 94760; 96361; 96374; 99152; 99291; J0456; J0696; J1100; J1650; J2250; J3010; J3490; J7040; J7042; J7050; J7512; P9016; Q9966; Q9967; U0003; U0005; 97110-GP; 97530-GO; 97530-GP; 97535-GO; G0378; J7030; J7626